=== PATIENT | male | born 1945 | race Caucasian/White ===

== ENCOUNTER 2016-09-20 12:37 | Emergency (ER) | payer MEDICARE, OTHER ==
[~2016-09-20] VITALS: Ht 180.3 cm; Wt 105.0 kg
[~2016-09-20 12:37] MED LIST: ANDROGEL; AZOR; FISH1000 PO; GINKO BILOBA; GLUC500C56 PO; HYALURONIC ACID; LORT7.5T3 PO; MELO7.5T PO; TAB-TAB PO; VITA100017 PO; VITA400C70 PO; ZOVI200C24; [UNRECOGNIZED DRUG - CODE] MT; [UNRECOGNIZED DRUG - OTHER]; [UNRECOGNIZED DRUG - OTHER]
[2016-09-20 12:50] VITALS: BP 185/92; PULSE 63; RESP 25; O2SAT 95
--- NOTE | 2016-09-20 13:14 | PD ---
HPI Chief Complaint: Fall Time Seen by Provider: 13:01 Travel History International Travel<30 days: No Contact w/Intl Traveler<30days: No Traveled to known affect area: No History of Present Illness HPI To 7-year-old male presents emergency department after witnessed fall for later with positive LOC. Reportedly group home up a 10 foot ladder when a branch hit him in the gallbladder and will follow-up her story jump. He reportedly fell onto his head on concrete. He had positive LOC. EMS reports altered mental status repetitive questioning. He otherwise had been feeling generally well. He is on a baby aspirin 3 times a week. No other blood thinners. He's had a recent history of arrhythmia, thought to be bigeminy. He otherwise had been feeling well. History Past Medical History Narrative Medical Bigeminy CAD, CABG Hypertension Social History Alcohol Use: Yes ([facility] WINE) Tobacco Use: Yes ([facility] CIGAR) Allergies-Medications (Allergen,Severity, Reaction): Coded Allergies: Lamisil (Verified Allergy, Mild, ILL FEELING, 09/20/16) Reported Meds & Prescriptions Reported Meds & Active Scripts Active Reported Lutein Unknown Strength Cap 1 Cap PO DAILY Lysine Unknown Strength Cap 1 Cap PO DAILY Zinc Unknown Strength Tab 1 Tab PO DAILY Lisinopril 5 Mg Tab 5 Mg PO DAILY Tamsulosin (Tamsulosin HCl) 0.4 Mg Cap 0.4 Mg PO HS Mobic (Meloxicam) 7.5 Mg Tab 7.5 Mg PO BID Androgel Pump Topical (Testosterone) 1.62 % Gel 20.25 Mg TOPICAL DAILY Apply 6 pumps to dry skin daily Review of Systems Except as stated in HPI: all other systems reviewed are Neg Physical Exam Narrative GENERAL: Well-appearing 70 year-old man, full spinal mobilization. No acute distress. SKIN: Focused skin assessment warm/dry. HEAD: Normocephalic. Scalp tender swelling in the posterior occiput. There is no blood. No obvious lacerations on the difficult to visualize. EYES: Pupils equal and round. No scleral icterus. No injection or drainage. ENT: No nasal bleeding or discharge. Mucous membranes pink and moist. NECK: Trachea midline. Denies any midline tenderness. No step-offs or deformities. Cervical collar in place. CARDIOVASCULAR: Regular rate and rhythm. No murmur appreciated. RESPIRATORY: No accessory muscle use. Clear to auscultation. Breath sounds equal bilaterally. GASTROINTESTINAL: Abdomen soft, non-tender, nondistended. Hepatic and splenic margins not palpable. MUSCULOSKELETAL: No obvious deformities. Back exam is unremarkable. Is no midline tenderness, step-offs, deformities, ecchymosis, or bruising. Upper and lower extremities are unremarkable to exam. He is full range of motion of all 4 extremities, full strength throughout. NEUROLOGICAL: Awake and alert. No obvious cranial nerve deficits. Motor grossly within normal limits. Normal speech. Data Data Last Documented VS Vital Signs Date Time Temp Pulse Resp B/P Pulse Ox O2 Delivery O2 Flow Rate FiO2 09/20/16 13:19 63 19 155/[address] Brain W/O Iv Contrast(Rout) (09/20/16 ) Ct Cerv Spine W/O Contrast (09/20/16 ) Complete Blood Count With Diff (09/20/16 13:01) Comprehensive Metabolic Panel (09/20/16 13:01) Act Partial Throm Time (Ptt) (09/20/16 13:01) Prothrombin Time / Inr (Pt) (09/20/16 13:01) Iv Access Insert/Monitor (09/20/16 13:01) Labs Laboratory Tests Test 09/20/16 13:10 White Blood Count 10.5 TH/MM3 Red Blood Count 4.96 MIL/MM3 Hemoglobin 13.0 GM/DL Hematocrit 39.0 % Mean Corpuscular Volume 78.6 FL Mean Corpuscular Hemoglobin 26.3 PG Mean Corpuscular Hemoglobin 33.4 % Concent Red Cell Distribution Width 18.2 % Platelet Count 232 TH/MM3 Mean Platelet Volume 9.2 FL Neutrophils (%) (Auto) 83.6 % Lymphocytes (%) (Auto) 9.0 % Monocytes (%) (Auto) 5.4 % Eosinophils (%) (Auto) 1.3 % Basophils (%) (Auto) 0.7 % Neutrophils # (Auto) 8.7 TH/MM3 Lymphocytes # (Auto) 0.9 TH/MM3 Monocytes # (Auto) 0.6 TH/MM3 Eosinophils # (Auto) 0.1 TH/MM3 Basophils # (Auto) 0.1 TH/MM3 CBC Comment DIFF FINAL Differential Comment Prothrombin Time 12.0 SEC Prothromb Time International 1.1 RATIO Ratio Activated Partial 24.1 SEC Thromboplast Time Sodium Level 141 MEQ/L Potassium Level 3.7 MEQ/L Chloride Level 106 MEQ/L Carbon Dioxide Level 26.7 MEQ/L Anion Gap 8 MEQ/L Blood Urea Nitrogen 24 MG/DL Creatinine 0.95 MG/DL Estimat Glomerular Filtration 78 ML/MIN Rate Random Glucose 128 MG/DL Calcium Level 8.4 MG/DL Total Bilirubin 1.2 MG/DL Aspartate Amino Transf 13 U/L (AST/SGOT) Alanine Aminotransferase 22 U/L (ALT/SGPT) Alkaline Phosphatase 108 U/L Total Protein 6.8 GM/DL Albumin 3.7 GM/DL [facility] Medical Decision Making Medical Screen Exam Complete: Yes Emergency Medical Condition: Yes Interpretation(s) LABS: CBC unremarkable. CMP generally unremarkable. Coags are unremarkable. Head CT: Negative. CT cervical spine: Negative. Differential Diagnosis Head injury, neck injury, other occult injury. Narrative Course Medical decision making INITIAL: 70-year-old male presents emergency department complaining of fall from a height with positive LOC and some repetitive questioning. He looks well now on exam. We'll check CT head, cervical spine, reassess. Diagnosis Primary Impression: Closed head injury Qualified Code: S09.90XA - Closed head injury, initial encounter Additional Instructions: Follow-up with her primary doctor for not blue on the next 3-5 days. Take Tylenol as needed for headache or pain. Med/Other Pt SpecificInfo: No Change to Meds Disposition: 01 DISCHARGE HOME Condition: Stable Александр Carlin MD Sep 20, 2016 13:14
[2016-09-20 13:19] VITALS: BP 155/83; PULSE 63; RESP 19; O2SAT 95
[2016-09-20 13:43] LABS: AUTOMATED NEUTROPHIL # 8.7 TH/MM3 (1.8-7.7); BASOPHIL # 0.1 TH/MM3 (0-0.2); BASOPHIL % 0.7 % (0.0-2.0); EOSINOPHIL # 0.1 TH/MM3 (0-0.4); EOSINOPHIL % 1.3 % (0.0-4.0); HEMO FLAGS DIFF FINAL; LYMPHOCYTE # 0.9 TH/MM3 (1.0-4.8); MEAN CELL VOLUME 78.6 FL (80.0-100.0); MEAN CORPUSCULAR HEMOGLOBIN 26.3 PG (27.0-34.0); MEAN CORPUSCULAR HGB CONC 33.4 % (32.0-36.0); MONO % 5.4 % (0.0-8.0); NEUT % 83.6 % (16.0-70.0); PLATELET COUNT 232 TH/MM3 (150-450); RED BLOOD COUNT 4.96 MIL/MM3 (4.50-5.90); RED CELL DISTRIBUTION WIDTH 18.2 % (11.6-17.2); WHITE BLOOD COUNT 10.5 TH/MM3 (4.0-11.0)
[2016-09-20 13:58] LABS: APTT (PATIENT) 24.1 SEC (24.3-30.1); INTERNATIONAL NORMALIZED RATIO 1.1 RATIO
[2016-09-20 14:05] LABS: ANION GAP 8 MEQ/L (5-15); AST (GOT) 13 U/L (15-37); BICARBONATE 26.7 MEQ/L (21.0-32.0); BLOOD UREA NITROGEN 24 MG/DL (7-18); CHLORIDE 106 MEQ/L (98-107); GLOMERULAR FILTRATION RATE 78 ML/MIN (>89); POTASSIUM 3.7 MEQ/L (3.5-5.1); SODIUM (NA) 141 MEQ/L (136-145)
[2016-09-20 14:09] LABS: ALKALINE PHOSPHATASE 108 U/L (45-117); ALT (GPT) 22 U/L (12-78); TOTAL BILIRUBIN ADULT 1.2 MG/DL (0.2-1.0)
[2016-09-20] MEDS ORDERED: TAMS0.4C4 PO (14:09)
[2016-09-20] MEDS ORDERED: MOBI7.5T PO (14:09)
[2016-09-20] MEDS ORDERED: LUTE6CAP2 PO (14:09)
[2016-09-20] MEDS ORDERED: ZINC25TA PO (14:09)
[2016-09-20] MEDS ORDERED: ANDR1.62 TOPICAL (14:09)
[2016-09-20] MEDS ORDERED: LYSI500C PO (14:09)
[2016-09-20] MEDS ORDERED: LISI-519 PO (14:09)
--- NOTE | 2016-09-20 14:48 | RADRPT ---
EXAM DATE/TIME: 09/20/2016 13:58 [facility] COMPARISON: No previous studies available for comparison. INDICATIONS : Fell off ladder today loss of consciousness. RADIATION DOSE: 41.15 CTDIvol (mGy) MEDICAL HISTORY : Hypertension. SURGICAL HISTORY : None. ENCOUNTER: Initial ACUITY: 1 day PAIN SCALE: 7/10 LOCATION: flank TECHNIQUE: Multiple contiguous axial images were obtained of the head. Using automated exposure control and adj ustment of the mA and/or kV according to patient size, radiation dose was kept as low as reasonably a chievable to obtain optimal diagnostic quality images. FINDINGS: CEREBRUM: The ventricles are normal for age. No evidence of midline shift, mass lesion, hemorrhage or acute in farction. No extra-axial fluid collections are seen. POSTERIOR FOSSA: The cerebellum and brainstem are intact. The 4th ventricle is midline. The cerebellopontine angle i s unremarkable. EXTRACRANIAL: Right frontoparietal contusion/soft tissue swelling. SKULL: The calvaria is intact. No evidence of skull fracture. CONCLUSION: No acute intracranial findings. Parth Richey MD on September 20, 2016 at 14:43 Board Certified Radiologist. This report was verified electronically.
--- NOTE | 2016-09-20 15:15 | RADRPT ---
EXAM DATE/TIME: 09/20/2016 13:58 [facility] COMPARISON: No previous studies available for comparison. INDICATIONS : Fell off ladder today hit head w loss of conciousness RADIATION DOSE: 21.60 CTDIvol (mGy) MEDICAL HISTORY : Hypertension. SURGICAL HISTORY : None. ENCOUNTER: Initial ACUITY: 1 day PAIN SCALE: 9/10 LOCATION: neck TECHNIQUE: Volumetric scanning of the cervical spine was performed. Multiplanar reconstructions in the sagittal, coronal and oblique axial planes were performed. Using automated exposure control and adjustment o f the mA and/or kV according to patient size, radiation dose was kept as low as reasonably achievable to obtain optimal diagnostic quality images. FINDINGS: VERTEBRAE: Normal vertebral body height. ALIGNMENT: No evidence of subluxation. C2-C3: Mild facet arthrosis. No evidence of focal disc protrusion. Central canal normal diameter. Neural for aminal diameters within normal limits. C3-C4: Broad-based disc bulge. Bilateral facet arthrosis. No evidence of focal disc protrusion. Central nohemi l normal diameter. Neural foraminal diameters within normal limits. C4-C5: Broad-based disc bulge and mild bilateral facet arthrosis. No evidence of focal disc protrusion. Cent ral canal normal diameter. Neural foraminal diameters within normal limits. C5-C6: Broad-based disc osteophyte complex and bilateral facet arthrosis. Mild bilateral neural foraminal na rrowing. Central canal diameter within normal limits. C6-C7: Broad-based disc bulge. Mild central canal narrowing. Moderate left neural foraminal narrowing. C7-T1: No evidence of focal disc protrusion. Central canal normal diameter. Neural foraminal diameters withi n normal limits. CONCLUSION: No evidence of fracture. Multilevel degenerative findings. Parth Richey MD on September 20, 2016 at 15:05 Board Certified Radiologist. This report was verified electronically.
[2016-09-20 16:31] VITALS: BP 177/91
== END 2016-09-20 16:31 | disposition home or self-care (01) ==
LOC: NEPC 12:37
DX: S09.90XA Unspecified injury of head, initial encounter (principal); I25.10 Atherosclerotic heart disease of native coronary artery without angina pectoris; I10 Essential (primary) hypertension; W11.XXXA Fall on and from ladder, initial encounter; Z72.0 Tobacco use; Z79.899 Other long term (current) drug therapy
CPT/HCPCS: 70450; 72125; 80053; 85025; 85610; 85730